=== PATIENT | male | born 2005 | race Caucasian/White ===

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

== ENCOUNTER 2024-05-30 23:00 | Emergency (ER) | payer OTHER, SELFPAY ==
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
--- OUTSIDE RECORDS SUMMARY | 2024-05-30 23:02 | XMS_ITS | Encounter Summary ---
Author Organization [facility] Address [facility] [place] [address] Care Team Providers Care Computer Video Game Designer Name Role Phone None, Provider Primary Care Provider Desireea ble Encounter Details Date Type Department Care Team (Late st Contact Info) Description 07/13/2018 Abstract SFL CONVERSION [address] [place] [address] , Generic Conversion, Social History Tobacco Use Types Packs/Day Years Used Date Smoking Tobacco: Never Assessed Sex and Gender Information Value Date Recorded Sex Assigned at Male 03/15/2024 7:45 PM DIABETES CLINICAL MANAGER Legal Sex Male 5:49 PM DIABETES CLINICAL MANAGER Gender Identity Not on file Sexual Orientation Not on file documented as of this encounter Plan of Treatment Not on file documented as of this encounter Visit Diagnoses Not on filedocumented in this encounter Care Teams Computer Video Game Designer Relationship Specialty Start Date End Date None, Provider, PCP - General UNKNOWN PHYSICIAN SPECIALTY 04/24/22 documented as of this encounter
--- OUTSIDE RECORDS SUMMARY | 2024-05-30 23:02 | XMS_ITS | Clinical Summary ---
Author Organization [facility] Address Replaced by [facility] [place] [address] Care Team Providers Care Nurse Orthopedic Name Role Phone None, Provider MD Primary Care Provider Unavaila ble Allergies Active Allergy Reactions Criticality Noted Date Comments Bee Venom Unknown 03/15/2024 Medications No known medications Encounters Date Type Department Care Team Description 03/15/2024 7:38 PM X RAY SERVICE TECHNICIAN - 03/15/2024 9:08 PM X RAY SERVICE TECHNICIAN Emergency [facility] [address] [place] [address] [place] [address] Clarence Dominguez MD Rectal Problem Discharge Disposition: Home or Self Care (Routine Discharge) 03/15/2024 Travel from Last 3 Months Social History Tobacco Use Types Packs/Day Years Used Date Smoking Tobacco: Never Smokeless Tobacco: Never Tobacco Cessation:Counseling Given: Not Answered Alcohol Use Standard Drinks/Week Comments Never 0 (1 standard drink = 0.6 oz pur e alcohol) Sex and Gender Information Value Date Recorded Sex Assigned at Male 03/15/2024 7:45 PM X RAY SERVICE TECHNICIAN Legal Sex Male 5:49 PM X RAY SERVICE TECHNICIAN Gender Identity Not on file Sexual Orientation Not on file Last Filed Vital Signs Vital Sign Reading Time Taken Comments Blood Pressure 109/59 03/15/2024 9:00 PM X RAY SERVICE TECHNICIAN Pulse 70 03/15/2024 7:39 PM X RAY SERVICE TECHNICIAN Temperature 36.3 C (97.4 F) 03/15/2024 7:39 PM X RAY SERVICE TECHNICIAN Respiratory Rate 18 03/15/2024 7:39 PM X RAY SERVICE TECHNICIAN Oxygen Saturation 100% 03/15/2024 9:00 PM X RAY SERVICE TECHNICIAN Inhaled Oxygen Concentration - - Weight 90.8 kg (200 lb 3.2 oz) 03/15/2024 7:39 P M X RAY SERVICE TECHNICIAN Height 177.8 cm (5' 10 ) 03/15/2024 7:39 PM X RAY SERVICE TECHNICIAN Body Mass Index 28.73 03/15/2024 7:39 PM X RAY SERVICE TECHNICIAN Plan of Treatment Health Maintenance Due Date Last Done Comments Annual Physical 10/08/2007 Meningococcal B Vaccine (1 o f 2 - Standard) 2020 Hepatitis C 2022 COVID-19 Vaccine (1 - 2023-2 5 season) 2023 Hepatitis B Vaccines (1 of 3 - 19+ 3-dose series) 10/08/2023 DTaP, Tdap and Td Vaccines ( 2 - Td or Tdap) 10/06/2026 10/06/2016 Meningococcal Vaccine Aged Out 10/06/2016 No navdeep ana paula eligible based on patient's age to complete this topic HPV Vaccines Completed 04/27/2017, 10/06/2016 Pneumococcal Vaccine: Pediatrics (0 to 5 Years) and At-Risk Patients (6 to 49 Years) Aged Out No longer eligible b ased on patient's age to complete this topic RSV Immunizations Under 20 Months Aged Out No longer eligible b ased on patient's age to complete this topic Procedures Procedure Name Priority Date/Time Associated Diagnosis Comments CT ABD+PEL W CON STAT 03/15/2024 8:29 PM X RAY SERVICE TECHNICIAN COMPREHENSIVE METABOLIC PANEL STAT 03/15/2024 8:14 PM X RAY SERVICE TECHNICIAN PARTIAL THROMBOPLASTIN TIME,PTT STAT 03/15/2024 8:14 PM X RAY SERVICE TECHNICIAN PROTHROMBIN TIME, VENOUS STAT 03/15/2024 8:14 PM X RAY SERVICE TECHNICIAN CBC W/DIFF AUTOMATED STAT 03/15/2024 8:14 PM X RAY SERVICE TECHNICIAN from Last 3 Months Results * CT ABD+PEL W CON (03/15/2024 8:29 PM X RAY SERVICE TECHNICIAN) Anatomical Region Laterality Modality Abdomen Computed Tomogra phy 03/15/2024 8:36 PM X RAY SERVICE TECHNICIAN Impressions 03/15/2024 8:43 PM X RAY SERVICE TECHNICIAN Impression: No acute abnormalities identified within the abdomen or pelvis. Ordered By: CLARENCE DOMINGUEZ Interpreted By: Jarrod Lopez MD, 03/15/2024 8:36 PM Narrative 03/15/2024 8:43 PM X RAY SERVICE TECHNICIAN [address] [place] [address] Examination: CT abdomen and pelvis with IV contrast. Clinical Information: ABDOMINAL PAIN FOR A FEW DAYS PATIENT STATES THAT HE NOTICED THE BLOOD IN HIS STOOL THIS AFTERNOON. Comparison:No comparison. Technique: IV contrast: 89 mL Isovue 370. Oral contrast: None. Technical comments: Standard technique. Dose reduction: This CT exam was performed using one or more of the following dose reduction techniques: Automated exposure control, adjustment of the mA and/or kV according to patient size, and/or use of iterative reconstruction technique. Findings: LOWER CHEST Heart is normal in size. Lung bases are clear. No pleural or pericardial effusions. UPPER ABDOMEN Liver and bile ducts: No focal liver lesion. Portal veins are patent. No biliary dilatation. Gallbladder: No gallbladder wall thickening or pericholecystic fluid. Pancreas: Unremarkable. Spleen: Normal. RETROPERITONEUM Adrenals: Normal. Kidneys: Enhance symmetrically with no solid mass or hydronephrosis. Lymph nodes: No lymphadenopathy in the abdomen or pelvis. BOWEL AND PERITONEUM Bowel: No acute bowel obstruction or inflammatory process. No CT findings of GI bleed within the limitations of a nondedicated exam. Free air or fluid: None. VASCULATURE The abdominal aorta is normal in caliber. PELVIS No abnormality. BONES/SOFT TISSUES No significant lesion. Procedure Note Jarrod Lopez MD - 03/15/[address] [place] [address] Examination: CT abdomen and pelvis with IV contrast. Clinical Information: ABDOMINAL PAIN FOR A FEW DAYS PATIENT STATES THATHE NOTICED THE BLOOD IN HIS STOOL THIS AFTERNOON. Comparison:No comparison. Technique: IV contrast: 89 mL Isovue 370. Oral contrast: None. Technical comments: Standard technique. Dose reduction: This CT exam was performed using one or more of thefollowing dose reduction techniques: Automated exposure control,adjustment of the mA and/or kV according to patient size, and/or use ofiterative reconstruction technique. Findings: LOWER CHEST Heart is normal in size. Lung bases are clear. No pleural or pericardialeffusions. UPPER ABDOMEN Liver and bile ducts: No focal liver lesion. Portal veins are patent. Nobiliary dilatation. Gallbladder: No gallbladder wall thickening or pericholecystic fluid. Pancreas: Unremarkable. Spleen: Normal. RETROPERITONEUM Adrenals: Normal. Kidneys: Enhance symmetrically with no solid mass or hydronephrosis. Lymph nodes: No lymphadenopathy in the abdomen or pelvis. BOWEL AND PERITONEUM Bowel: No acute bowel obstruction or inflammatory process. No CT findingsof GI bleed within the limitations of a nondedicated exam. Free air or fluid: None. VASCULATURE The abdominal aorta is normal in caliber. PELVIS No abnormality. BONES/SOFT TISSUES No significant lesion. Impression: No acute abnormalities identified within the abdomen or pelvis. Ordered By: CLARENCE DOMINGUEZ Interpreted By: Jarrod Lopez MD, 03/15/2024 8:36 PM Clarence Dominguez MD CT Final Res ult * PARTIAL THROMBOPLASTIN TIME,PTT (03/15/2024 8:14 PM X RAY SERVICE TECHNICIAN) PTT 35.0 25.1 - 36.5 SEC 03/15/2024 8:32 PM X RAY SERVICE TECHNICIAN [facility] 03/15/2024 8:14 PM X RAY SERVICE TECHNICIAN Clarence Dominguez MD LABORATORY Final Res ult [facility] [address] [place] [address], * (ABNORMAL) PROTIME/INR, VENOUS (03/15/2024 8:14 PM X RAY SERVICE TECHNICIAN) PROTIME 12.7(H) 9.4 - 12.5 SEC 03/15/2024 8:32 PM X RAY SERVICE TECHNICIAN [facility] INR 1.1(H) 0.8 - 1.0 03/15/2024 8:32 PM X RAY SERVICE TECHNICIAN [facility] 03/15/2024 8:14 PM X RAY SERVICE TECHNICIAN us Clarence Dominguez MD LABORATORY Final Res ult [facility] [address] [place] [address], * (ABNORMAL) COMPREHENSIVE METABOLIC PANEL (03/15/2024 8:14 PM X RAY SERVICE TECHNICIAN) SODIUM S/P/B 142 136 - 145 MMOL/L 03/15/2024 8:[address] [facility] POTASSIUM S/P/B 4.4 3.5 - 5.1 MMOL/L 03/15/2024 8:[address] [facility] CHLORIDE S/P/B 104 98 - 107 MMOL/L 03/15/2024 8:[address] [facility] CO2 28.9 21.0 - 32.0 MMOL/L 03/15/2024 8:[address] [facility] GLUCOSE 88 70 - 99 MG/DL 03/15/2024 8:[address] [facility] Comment: FASTING GLUCOSE 100 TO 125 MG/DL IS CONSISTENT WITH IMPAIRED FASTING GLUCOSE. FASTING GLUCOSE >125 MG/DL IS CONSISTENT WITH DIABETES. RANDOM GLUCOSE >200 MG/DL WITH HYPERGLYCEMIC SYMPTOMS IS CONSISTENT WITH DIABETES. PER ADA GUIDELINES BUN 9 6 - 24 MG/DL 03/15/2024 8:[address] [facility] CREATININE S/P/B 0.89 0.70 - 1.30 MG/DL 03/15/2024 8:[address] [facility] CALCIUM S/P/B 9.1 8.4 - 10.5 MG/DL 03/15/2024 8:[address] [facility] BILIRUBIN TOTAL S/P/B 0.4 0.2 - 1.0 MG/DL 03/15/2024 8:[address] [facility] Comment: THIS ASSAY IS NOT RECOMMENDED FOR PATIENTS UNDERGOING TREATMENT WITH ELTROMBOPAG DUE TO THE POTENTIAL FOR FALSELY ELEVATED RESULTS. ALKALINE PHOSPHATASE S/P/B 82 45 - 115 U/L 03/15/2024 8:[address] [facility] AST 13(L) 15 - 37 U/L 03/15/2024 8:36 PM X RAY SERVICE TECHNICIAN [facility] ALT 25 16 - 63 U/L 03/15/2024 8:[address] [facility] TOTAL PROTEIN S/P/B 7.4 6.4 - 8.2 G/DL 03/15/2024 8:[address] [facility] ALBUMIN S/P/B 4.1 3.4 - 5.0 G/DL 03/15/2024 8:[address] [facility] ANION GAP 9.1 5.0 - 15.0 MMOL/L 03/15/2024 8:[address] [facility] OSMOLALITY (CALC) 292 MOSM/KG 025 8:[address] [facility] Comment:REFERENCE RANGE NOT ESTABLISHED GFR ESTIMATE >90 >89 ML/MIN/1. 73 M2 03/15/2024 8:[address] [facility] GFR NOTES GFR REFERENCE S: 03/15/2024 8:[address] [facility] Comment: THE ESTIMATED GFR IS CALCULATED USING THE 2020 CKD-EPI EQUATION. THE FOLLOWING CATEGORIES FOR GRADING RENAL FUNCTION ARE RECOMMENDED BY THE INTERNATIONAL SOCIETY OF NEPHROLOGY (KDIGO 2012 CLINICAL PRACTICE GUIDELINE). G1,NORMAL OR HIGH: >89 ml/min/1.73 m2 G2,MILDLY DECREASED: 60-89 ml/min/1.73 m2 G3A,MILDLY TO MODERATELY DECREASED: 45-59 ml/min/1.73 m2 G3B,MODERATELY TO SEVERELY DECREASED: 30-44 ml/min/1.73 m2 G4,SEVERELY DECREASED: 15-29 ml/min/1.73 m2 G5,KIDNEY FAILURE: <15 ml/min/1.73 m2 03/15/2024 8:14 PM X RAY SERVICE TECHNICIAN us Clarence Dominguez MD LABORATORY Final Res ult [facility] [address] [place] [address], * (ABNORMAL) CBC W/DIFF AUTOMATED (03/15/2024 8:14 PM X RAY SERVICE TECHNICIAN) [facility] WBC 10.15 4.00 - 10.80 x10'3/uL 03/15/2024 8:[address] [facility] RBC 6.63(H) 4.50 - 6.10 x10'6/uL 03/15/2024 8:[address] [facility] HGB 12.5(L) 13.0 - 18.0 G/DL 03/15/2024 8:[address] [facility] HCT 40.3 37.0 - 52.0 % 03/15/2024 8:[address] [facility] MCV 60.8(L) 78.0 - 100.0 FL 03/15/2024 8:[address] [facility] MCH 18.9(L) 27.0 - 31.0 PG 03/15/2024 8:[address] [facility] MCHC 31.0(L) 33.0 - 36.0 G/DL 03/15/2024 8:[address] [facility] RDW 16.7(H) 11.5 - 14.5 % 03/15/2024 8:[address] [facility] PLT 425(H) 150 - 350 x10'3/uL 03/15/2024 8:[address] [facility] MPV 9.0 7.4 - 10.4 FL 03/15/2024 8:[address] [facility] CBC COMMENT NORMAL REFERENCE RANGE NOT ESTABLISHED FOR THE PROPORTIONAL LEUKOCYTE DIFFERENTIAL. 03/15/2024 8:[address] [facility] NEUTROPHILS % 58.7 % 03/15/2024 8:[address] [facility] LYMPHOCYTES % 28.7 % 03/15/2024 8:[address] [facility] MONOCYTES % 9.8 % 03/15/2024 8:[address] [facility] EOSINOPHILS % 1.1 % 03/15/2024 8:[address] [facility] BASOPHILS % 0.7 % 03/15/2024 8:[address] [facility] IMMATURE GRANS % 1.0 % 03/15/19 8:37 PM X RAY SERVICE TECHNICIAN [facility] NRBC % 0.0 % 03/15/2024 8:37 PM X RAY SERVICE TECHNICIAN [facility] ABS. NEUTROPHILS 5.97 1.60 - 8.30 x10'3/uL 03/15/2024 8:37 PM X RAY SERVICE TECHNICIAN [facility] ABS. LYMPHOCYTES 2.91 0.80 - 4.70 x10'3/uL 03/15/2024 8:37 PM X RAY SERVICE TECHNICIAN [facility] ABS. MONOCYTES 0.99 0.00 - 1.50 x10'3/uL 03/15/2024 8:37 PM X RAY SERVICE TECHNICIAN [facility] ABS. EOSINOPHILS 0.11 0.00 - 0.40 x10'3/uL 03/15/2024 8:37 PM X RAY SERVICE TECHNICIAN [facility] ABS. BASOPHILS 0.07 0.00 - 0.20 x10'3/uL 03/15/2024 8:37 PM X RAY SERVICE TECHNICIAN [facility] ABS. IMMATURE GRANULOCYTES 0.10(H) 0.00 - 0.03 x10'3/uL 03/15/2024 8:37 PM X RAY SERVICE TECHNICIAN [facility] ABS. NUCLEATED RBC'S 0.00 0.00 - 0.01 x10'3/uL 03/15/2024 8:37 PM X RAY SERVICE TECHNICIAN [facility] PLT MORPH. NORMAL 03/15/2024 8:37 PM X RAY SERVICE TECHNICIAN [facility] RBC MORPHOLOGY 1+ 03/15/2024 8:37 PM X RAY SERVICE TECHNICIAN [facility] Comment: HYPOCHROMASIA 1+ MICROCYTES 03/15/2024 8:14 PM X RAY SERVICE TECHNICIAN us Clarence Dominguez MD LABORATORY Final Res ult [facility] [address] [place] [address], from Last 3 Months Insurance [employer] Care Teams Nurse Orthopedic Relationship Specialty Start Date End Date None, Provider, PCP - General UNKNOWN PHYSICIAN SPECIALTY 04/24/22
[2024-05-30 23:03] VITALS: BP 127/71; PULSE 85; RESP 18; TEMP 36.2; O2SAT 100
--- OUTSIDE RECORDS SUMMARY | 2024-05-30 23:23 | XMS_ITS | Encounter Summary ---
Author Organization [facility] Address formerly [facility] [place] [address] Care Team Providers Care Business Account Manager Name Role Phone None, Provider Primary Care Provider Desireea ble Encounter Details Date Type Department Care Team (Late st Contact Info) Description 07/13/2018 Abstract SFL CONVERSION [address] [place] [address] , Generic Conversion, Social History Tobacco Use Types Packs/Day Years Used Date Smoking Tobacco: Never Assessed Sex and Gender Information Value Date Recorded Sex Assigned at Male 03/15/2024 7:45 PM GAUGE AND WEIGH MACHINE ADJUSTER Legal Sex Male 5:49 PM GAUGE AND WEIGH MACHINE ADJUSTER Gender Identity Not on file Sexual Orientation Not on file documented as of this encounter Plan of Treatment Not on file documented as of this encounter Visit Diagnoses Not on filedocumented in this encounter Care Teams Business Account Manager Relationship Specialty Start Date End Date None, Provider, PCP - General UNKNOWN PHYSICIAN SPECIALTY 04/24/22 documented as of this encounter
--- OUTSIDE RECORDS SUMMARY | 2024-05-30 23:23 | XMS_ITS | Clinical Summary ---
Author Organization [facility] Address [facility] [place] [address] Care Team Providers Care Die Try Out Worker Stamping Name Role Phone None, Provider MD Primary Care Provider Unavaila ble Allergies Active Allergy Reactions Criticality Noted Date Comments Bee Venom Unknown 03/15/2024 Medications No known medications Encounters Date Type Department Care Team Description 03/15/2024 7:38 PM CUSHION COVER INSPECTOR - 03/15/2024 9:08 PM CUSHION COVER INSPECTOR Emergency [facility] [address] [place] [address] [place] [address] Clarence Dominguez MD Rectal Problem Discharge Disposition: [...] Sex Assigned at Male 03/15/2024 7:45 PM CUSHION COVER INSPECTOR Legal Sex Male 5:49 PM CUSHION COVER INSPECTOR Gender Identity Not on file Sexual Orientation Not on file Last Filed Vital Signs Vital Sign Reading Time Taken Comments Blood Pressure 109/59 03/15/2024 9:00 PM CUSHION COVER INSPECTOR Pulse 70 03/15/2024 7:39 PM CUSHION COVER INSPECTOR Temperature 36.3 C (97.4 F) 03/15/2024 7:39 PM CUSHION COVER INSPECTOR Respiratory Rate 18 03/15/2024 7:39 PM CUSHION COVER INSPECTOR Oxygen Saturation 100% 03/15/2024 9:00 PM CUSHION COVER INSPECTOR Inhaled Oxygen Concentration - - Weight 90.8 kg (200 lb 3.2 oz) 03/15/2024 7:39 P M CUSHION COVER INSPECTOR Height 177.8 cm (5' 10 ) 03/15/2024 7:39 PM CUSHION COVER INSPECTOR Body Mass Index 28.73 03/15/2024 7:39 PM CUSHION COVER INSPECTOR Plan of Treatment Health Maintenance Due Date [...] ABD+PEL W CON STAT 03/15/2024 8:29 PM CUSHION COVER INSPECTOR COMPREHENSIVE METABOLIC PANEL STAT 03/15/2024 8:14 PM CUSHION COVER INSPECTOR PARTIAL THROMBOPLASTIN TIME,PTT STAT 03/15/2024 8:14 PM CUSHION COVER INSPECTOR PROTHROMBIN TIME, VENOUS STAT 03/15/2024 8:14 PM CUSHION COVER INSPECTOR CBC W/DIFF AUTOMATED STAT 03/15/2024 8:14 PM CUSHION COVER INSPECTOR from Last 3 Months Results * CT ABD+PEL W CON (03/15/2024 8:29 PM CUSHION COVER INSPECTOR) Anatomical Region Laterality Modality Abdomen Computed Tomogra phy 03/15/2024 8:36 PM CUSHION COVER INSPECTOR Impressions 03/15/2024 8:43 PM CUSHION COVER INSPECTOR Impression: No acute abnormalities identified within the abdomen or pelvis. Ordered By: CLARENCE DOMINGUEZ Interpreted By: Jarrod Lopez MD, 03/15/2024 8:36 PM Narrative 03/15/2024 8:43 PM CUSHION COVER INSPECTOR [address] [place] [address] Examination: CT abdomen and pelvis with IV [...] Procedure Note Jarrod Lopez MD - 03/15/[address] [place] [address] Examination: CT abdomen and pelvis with IV [...] * PARTIAL THROMBOPLASTIN TIME,PTT (03/15/2024 8:14 PM CUSHION COVER INSPECTOR) PTT 35.0 25.1 - 36.5 SEC 03/15/2024 8:32 PM CUSHION COVER INSPECTOR [facility] 03/15/2024 8:14 PM CUSHION COVER INSPECTOR Clarence Dominguez MD LABORATORY Final Res ult [facility] [address] [place] [address], * (ABNORMAL) PROTIME/INR, VENOUS (03/15/2024 8:14 PM CUSHION COVER INSPECTOR) PROTIME 12.7(H) 9.4 - 12.5 SEC 03/15/2024 8:32 PM CUSHION COVER INSPECTOR [facility] INR 1.1(H) 0.8 - 1.0 03/15/2024 8:32 PM CUSHION COVER INSPECTOR [facility] 03/15/2024 8:14 PM CUSHION COVER INSPECTOR us Clarence Dominguez MD LABORATORY Final Res ult [facility] [address] [place] [address], * (ABNORMAL) COMPREHENSIVE METABOLIC PANEL (03/15/2024 8:14 PM CUSHION COVER INSPECTOR) SODIUM S/P/B 142 136 - 145 MMOL/L 03/15/2024 8:36 PM [facility] POTASSIUM S/P/B 4.4 3.5 - 5.1 MMOL/L 03/15/2024 8:36 PM [facility] CHLORIDE S/P/B 104 98 - 107 MMOL/L 03/15/2024 8:36 PM [facility] CO2 28.9 21.0 - 32.0 MMOL/L 03/15/2024 8:36 PM [facility] GLUCOSE 88 70 - 99 MG/DL 03/15/2024 8:36 PM [facility] Comment: FASTING GLUCOSE 100 TO 125 MG/DL IS CONSISTENT WITH IMPAIRED FASTING GLUCOSE. FASTING GLUCOSE >125 MG/DL IS CONSISTENT WITH DIABETES. RANDOM GLUCOSE >200 MG/DL WITH HYPERGLYCEMIC SYMPTOMS IS CONSISTENT WITH DIABETES. PER ADA GUIDELINES BUN 9 6 - 24 MG/DL 03/15/2024 8:36 PM [facility] CREATININE S/P/B 0.89 0.70 - 1.30 MG/DL 03/15/2024 8:36 PM [facility] CALCIUM S/P/B 9.1 8.4 - 10.5 MG/DL 03/15/2024 8:36 PM [facility] BILIRUBIN TOTAL S/P/B 0.4 0.2 - 1.0 MG/DL 03/15/2024 8:36 PM [facility] Comment: THIS ASSAY IS NOT RECOMMENDED FOR PATIENTS UNDERGOING TREATMENT WITH ELTROMBOPAG DUE TO THE POTENTIAL FOR FALSELY ELEVATED RESULTS. ALKALINE PHOSPHATASE S/P/B 82 45 - 115 U/L 03/15/2024 8:36 PM [facility] AST 13(L) 15 - 37 U/L 03/15/2024 8:36 PM CUSHION COVER INSPECTOR [facility] ALT 25 16 - 63 U/L 03/15/2024 8:36 PM [facility] TOTAL PROTEIN S/P/B 7.4 6.4 - 8.2 G/DL 03/15/2024 8:36 PM [facility] ALBUMIN S/P/B 4.1 3.4 - 5.0 G/DL 03/15/2024 8:36 PM [facility] ANION GAP 9.1 5.0 - 15.0 MMOL/L 03/15/2024 8:36 PM [facility] OSMOLALITY (CALC) 292 MOSM/KG 025 8:36 PM [facility] Comment:REFERENCE RANGE NOT ESTABLISHED GFR ESTIMATE >90 >89 ML/MIN/1. 73 M2 03/15/2024 8:36 PM [facility] GFR NOTES GFR REFERENCE S: 03/15/2024 8:36 PM [facility] Comment: THE ESTIMATED GFR IS [...] FAILURE: <15 ml/min/1.73 m2 03/15/2024 8:14 PM CUSHION COVER INSPECTOR us Clarence Dominguez MD LABORATORY Final Res ult [facility] [address] [place] [address], * (ABNORMAL) CBC W/DIFF AUTOMATED (03/15/2024 8:14 PM CUSHION COVER INSPECTOR) [facility] WBC 10.15 4.00 - 10.80 x10'3/uL 03/15/2024 8:24 PM [facility] RBC 6.63(H) 4.50 - 6.10 x10'6/uL 03/15/2024 8:24 PM [facility] HGB 12.5(L) 13.0 - 18.0 G/DL 03/15/2024 8:24 PM [facility] HCT 40.3 37.0 - 52.0 % 03/15/2024 8:24 PM [facility] MCV 60.8(L) 78.0 - 100.0 FL 03/15/2024 8:24 PM [facility] MCH 18.9(L) 27.0 - 31.0 PG 03/15/2024 8:24 PM [facility] MCHC 31.0(L) 33.0 - 36.0 G/DL 03/15/2024 8:24 PM [facility] RDW 16.7(H) 11.5 - 14.5 % 03/15/2024 8:24 PM [facility] PLT 425(H) 150 - 350 x10'3/uL 03/15/2024 8:24 PM [facility] MPV 9.0 7.4 - 10.4 FL 03/15/2024 8:24 PM [facility] CBC COMMENT NORMAL REFERENCE RANGE NOT ESTABLISHED FOR THE PROPORTIONAL LEUKOCYTE DIFFERENTIAL. 03/15/2024 8:24 PM [facility] NEUTROPHILS % 58.7 % 03/15/2024 8:37 PM [facility] LYMPHOCYTES % 28.7 % 03/15/2024 8:37 PM [facility] MONOCYTES % 9.8 % 03/15/2024 8:37 PM [facility] EOSINOPHILS % 1.1 % 03/15/2024 8:37 PM [facility] BASOPHILS % 0.7 % 03/15/2024 8:37 PM [facility] IMMATURE GRANS % 1.0 % 03/15/19 8:37 PM CUSHION COVER INSPECTOR [facility] NRBC % 0.0 % 03/15/2024 8:37 PM CUSHION COVER INSPECTOR [facility] ABS. NEUTROPHILS 5.97 1.60 - 8.30 x10'3/uL 03/15/2024 8:37 PM CUSHION COVER INSPECTOR [facility] ABS. LYMPHOCYTES 2.91 0.80 - 4.70 x10'3/uL 03/15/2024 8:37 PM CUSHION COVER INSPECTOR [facility] ABS. MONOCYTES 0.99 0.00 - 1.50 x10'3/uL 03/15/2024 8:37 PM CUSHION COVER INSPECTOR [facility] ABS. EOSINOPHILS 0.11 0.00 - 0.40 x10'3/uL 03/15/2024 8:37 PM CUSHION COVER INSPECTOR [facility] ABS. BASOPHILS 0.07 0.00 - 0.20 x10'3/uL 03/15/2024 8:37 PM CUSHION COVER INSPECTOR [facility] ABS. IMMATURE GRANULOCYTES 0.10(H) 0.00 - 0.03 x10'3/uL 03/15/2024 8:37 PM CUSHION COVER INSPECTOR [facility] ABS. NUCLEATED RBC'S 0.00 0.00 - 0.01 x10'3/uL 03/15/2024 8:37 PM CUSHION COVER INSPECTOR [facility] PLT MORPH. NORMAL 03/15/2024 8:37 PM CUSHION COVER INSPECTOR [facility] RBC MORPHOLOGY 1+ 03/15/2024 8:37 PM CUSHION COVER INSPECTOR [facility] Comment: HYPOCHROMASIA 1+ MICROCYTES 03/15/2024 8:14 PM CUSHION COVER INSPECTOR us Clarence Dominguez MD LABORATORY Final Res ult [facility] [address] [place] [address], from Last 3 Months Insurance [employer] Care Teams Die Try Out Worker Stamping Relationship Specialty Start Date End Date None, Provider, PCP - General UNKNOWN PHYSICIAN SPECIALTY 04/24/22
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
[2024-05-31 00:09] VITALS: BP 105/65; PULSE 67; RESP 18; TEMP 36.6; O2SAT 99
== END 2024-05-31 00:09 | disposition home or self-care (01) ==
PROVIDERS: Emergency Provider Emergency Medicine; PCP Internal Medicine
DX: S93.491A Sprain of other ligament of right ankle, initial encounter (principal); S93.601A Unspecified sprain of right foot, initial encounter; W17.89XA Other fall from one level to another, initial encounter
CPT/HCPCS: 29515; 73610; 73630; 99283; L4350

== ENCOUNTER 2024-12-22 19:52 | Emergency (ER) | payer SELFPAY ==
[2024-12-22 19:53] VITALS: BP 140/72; PULSE 76; RESP 22; TEMP 36.5; O2SAT 100
--- NOTE | 2024-12-22 20:08 | ED_ITS ---
HPI - Male Genitourinary General Chief complaint: Urogenital-Male Stated complaint: testicle issue Time Seen by Provider: 12/22/24 19:55 Source: patient Mode of arrival: ambulatory History of Present Illness HPI Narrative: 19-year-old otherwise healthy here with the complaints of a mass on the left testicle noticed few hours ago. He denies any pain or fever or chills no trauma. Complaint: testicle swelling Onset (ago): hour(s) (1) Duration: constant Location: left testicle Related Data Home Medications ?Medication ?Instructions ?Recorded ?Confirmed ?Last Taken ?Type No Home Medications 05/20/21 12/22/24 U nknown History Allergies Allergy/AdvReac Type Severity Reaction Status Date / Time No Known Allergies Allergy Verified 12/22/24 19:55 Review of Systems Review of Systems: All systems reviewed & are unremarkable except as noted in HPI and below Constitutional: Constitutional: Reports no additional constitutional complaints Eyes: Eyes: Reports no additional eye complaints ENT: Reports system reviewed and no additional complaints, except as documented Cardiovascular: Cardiovascular: Reports no additional cardiovascular complaints Respiratory: Respiratory: Reports no additional respiratory complaints Gastrointestinal: Gastrointestinal: Reports no additional gastrointestinal complaints Genitourinary: Genitourinary: Reports as per HPI Musculoskeletal: Musculoskeletal: Reports no additional musculoskeletal complaints PMFSH Past Medical History Medical History No active medical problems Surgical History Surgical History No pertinent past surgical history Social History Social History Smoking status: Never smoker Exam Narrative: GENERAL: Well-appearing, well-nourished, and in no acute distress. HEAD: Normocephalic, atraumatic. EYES: PERRLA and EOMI. NECK: Supple. CHEST: Clear to auscultation. No respiratory distress. HEART: Regular rate and rhythm. No murmur heard. Normal peripheral pulses. ABDOMEN: Soft, nontender, nondistended, normal active bowel sounds. both the testicles are descended nontender, there is a small swelling on the epididymal area on the left , non tender Right is normal EXTREMITIES: Normal range of motion. No edema. SKIN: Warm, dry, no rash. NEURO: No focal deficits. Alert and oriented x3. PSYCH: Normal mood and affect. Course Course Emergency Course: informed him it appears to be like varicocele or epididymal cyst. Move the testis are soft and nontender advised him to come back in the morning to get an ultrasound. Vital Signs Vital signs: Vital Signs Temperature 36.5 C 12/22/24 19:53 Pulse Rate 76 12/22/24 19:53 Respiratory Rate 22 H 12/22/24 19:53 Blood Pressure 140/72 12/22/24 19:53 Pulse Oximetry 100 12/22/24 19:53 Oxygen Delivery Room Air 12/22/24 19:53 Temperature 36.5 C 12/22/24 19:53 Pulse Rate 76 12/22/24 19:53 Respiratory Rate 22 H 12/22/24 19:53 Blood Pressure 140/72 12/22/24 19:53 Pulse Oximetry 100 12/22/24 19:53 Oxygen Delivery Room Air 12/22/24 19:53 Discharge Plan Discharge Clinical Impression: Mass of left testis Patient Disposition: Home Condition: Stable Instructions: Testicle Pain (ED) Additional Instructions: please come in the morning for ultrasound Patient Language: Tajik Prescriptions: No Action No Home Medications Follow-up/Referrals: Steven Everett MD [Physician, Internal Medicine] Time of Disposition: 20:10
[2024-12-22 21:12] VITALS: BP 107/62; PULSE 62; RESP 16; TEMP 36.5; O2SAT 98
== END 2024-12-22 21:18 | disposition home or self-care (01) ==
PROVIDERS: Emergency Provider Family Medicine; Referring Provider Family Medicine
DX: N50.9 Disorder of male genital organs, unspecified (principal)
CPT/HCPCS: 99281

== ENCOUNTER 2024-12-23 07:03 | Emergency (ER) | payer SELFPAY ==
--- NOTE | ~2024-12-23 | US_ITS ---
EXAMINATION: US scrotum doppler, 12/23/2024 7:12 QUALITY DIRECTOR HISTORY: left testicular mass Comparison: None Technique: Kinney-scale and color Doppler images were obtained of the testes with spectral analysis to document arterial and venous flow. Findings: Right Testicle:Right testicle 3.7 x 2.6 x 2.1 cm, normal parenchyma, normal flow. Right Epidiymis:Unremarkable. Normal flow. Left Testicle: Left testicle 3.6 x 2.2 x 2.1 cm normal parenchyma, normal flow. Left Epidiymis: Unremarkable. Normal flow. Hydrocele: None . Varicocele: Small left varicocele. Scrotum: Unremarkable. No skin thickening. Impression: Small left varicocele Reviewed, dictated and finalized at location P. ITY DIRECTOR Impression: Small left varicocele
[2024-12-23 07:03] VITALS: BP 120/66; PULSE 81; RESP 16; TEMP 36.4; O2SAT 99
--- NOTE | 2024-12-23 07:08 | ED_ITS ---
HPI - Male Genitourinary General Chief complaint: Urogenital-Male <Juan David Kirby MD - Last Filed: 12/23/24 07:15> Stated complaint: Testicle Swelling <Juan David Kirby MD - Last Filed: 12/23/24 07:15> Time Seen by Provider: 12/23/24 07:08 <Juan David Kirby MD - Last Filed: 12/23/24 07:15> Source: patient <Juan David Kirby MD - Last Filed: 12/23/24 07:15> Mode of arrival: ambulatory <Juan David Kirby MD - Last Filed: 12/23/24 07:15> History of Present Illness HPI Narrative: Here for testicular ultrasound , was seen last night for left testicular mass. no new complaints. <Juan David Kirby MD - Last Filed: 12/23/24 07:15> MD Complaint: testicle swelling <Juan David Kirby MD - Last Filed: 12/23/24 07:15> Onset (ago): day(s) (1) <Juan David Kirby MD - Last Filed: 12/23/24 07:15> Relieving factors: none <Juan David Kirby MD - Last Filed: 12/23/24 07:15> Exacerbating factors: none <Juan David Kirby MD - Last Filed: 12/23/24 07:15> Associated symptoms: Reports denies other symptoms <Juan David Kirby MD - Last Filed: 12/23/24 07:15> Related Data Home medications: Home Medications ?Medication ?Instructions ?Recorded ?Confirmed ?Last Taken ?Type No Home Medications 05/20/21 12/22/24 U nknown History <Juan David Kirby MD - Last Filed: 12/23/24 07:15> Allergies/Adverse reactions: Allergies Allergy/AdvReac Type Severity Reaction Status Date / Time No Known Allergies Allergy Verified 12/23/24 07:07 <Juan David Kirby MD - Last Filed: 12/23/24 07:15> Review of Systems Review of Systems: No new complaints <Yazan Middleton MD - Last Filed: 12/23/24 09:21> All systems reviewed & are unremarkable except as noted in HPI and below <Juan David Kirby MD - Last Filed: 12/23/24 07:15> Constitutional: Constitutional: Reports no additional constitutional complaints <Juan David Kirby MD - Last Filed: 12/23/24 07:15> Eyes: Eyes: Reports no additional eye complaints <Juan David Kirby MD - Last Filed: 12/23/24 07:15> ENT: Reports system reviewed and no additional complaints, except as do cumented <Juan David Kirby MD - Last Filed: 12/23/24 07:15> Cardiovascular: Cardiovascular: Reports no additional cardiovascular complaints <Juan David Kirby MD - Last Filed: 12/23/24 07:15> Respiratory: Respiratory: Reports no additional respiratory complaints <Juan David Kirby MD - Last Filed: 12/23/24 07:15> Gastrointestinal: Gastrointestinal: Reports no additional gastrointestinal complaints <Juan David Kirby MD - Last Filed: 12/23/24 07:15> Genitourinary: Genitourinary: Reports as per HPI <Juan David Kirby MD - Last Filed: 12/23/24 07:15> Musculoskeletal: Musculoskeletal: Reports no additional musculoskeletal complaints <Juan David Kirby MD - Last Filed: 12/23/24 07:15> PMFSH Past Medical History Medical History: Medical History No active medical problems <Juan David Kirby MD - Last Filed: 12/23/24 07:15> Surgical History Surgical History: Surgical History No pertinent past surgical history <Juan David Kirby MD - Last Filed: 12/23/24 07:15> Social History Social History: Social History Smoking status: Never smoker <Juan David Kirby MD - Last Filed: 12/23/24 07:15> Exam Narrative: GENERAL: Well-appearing, well-nourished, and in no acute distress. HEAD: Normocephalic, atraumatic. EYES: PERRLA and EOMI. ENT: Nares clear, no rhinorrhea or epistaxis. Mucous membranes moist. NECK: Supple. CHEST: Clear to auscultation. No respiratory distress. HEART: Regular rate and rhythm. No murmur heard. Normal peripheral pulses. ABDOMEN: Soft, nontender, nondistended, normal active bowel sounds. .A small swelling on the left testicle EXTREMITIES: Normal range of motion. No edema. SKIN: Warm, dry, no rash. NEURO: No focal deficits. Alert and oriented x3. PSYCH: Normal mood and affect. <Juan David Kirby MD - Last Filed: 12/23/24 07:15> Course Vital Signs Vital signs: Vital Signs Temperature 36.4 C 12/23/24 07:03 Pulse Rate 81 12/23/24 07:03 Respiratory Rate 16 12/23/24 07:03 Blood Pressure 120/66 12/23/24 07:03 Pulse Oximetry 99 12/23/24 07:03 Oxygen Delivery Room Air 12/23/24 07:03 Temperature 36.4 C 12/23/24 07:03 Pulse Rate 81 12/23/24 07:03 Respiratory Rate 16 12/23/24 07:03 Blood Pressure 120/66 12/23/24 07:03 Pulse Oximetry 99 12/23/24 07:03 Oxygen Delivery Room Air 12/23/24 07:03 <Juan David Kirby MD - Last Filed: 12/23/24 07:15> Vital Signs Temperature 36.4 C 12/23/24 07:03 Pulse Rate 81 12/23/24 07:03 Respiratory Rate 16 12/23/24 07:03 Blood Pressure 120/66 12/23/24 07:03 Pulse Oximetry 99 12/23/24 07:03 Oxygen Delivery Room Air 12/23/24 07:03 Temperature 36.4 C 12/23/24 07:03 Pulse Rate 81 12/23/24 07:03 Respiratory Rate 16 12/23/24 07:03 Blood Pressure 120/66 12/23/24 07:03 Pulse Oximetry 99 12/23/24 07:03 Oxygen Delivery Room Air 12/23/24 07:03 <Yazan Middleton MD - Last Filed: 12/23/24 09:21> MDM - Male Genitourinary MDM Narrative Medical decision making narrative: 7:40 a.m. I received report from Dr. Casas regarding This 19-year-old male who was seen last night, had a workup for it stick killer discomfort, was noted to have a any lump or mass on his left testicle, and had an epidural workup, and was requested to return this morning for an ultrasound. He has no new complaints, ultrasound is pending, 8:25 a.m. ultrasound shows a left small varicocoele, otherwise unremarkable. I discussed the results with the patient, recommended Tylenol 650 Q 6 as needed for discomfort and or ibuprofen 600 mg q.6 as needed Will refer him to urology for follow up. <Yazan Middleton MD - Last Filed: 12/23/24 09:21> Discharge Plan Discharge Clinical Impression: Left varicocele <Juan David Kirby MD - Last Filed: 12/23/24 07:15> Patient Disposition: Home <Juan David Kirby MD - Last Filed: 12/23/24 07:15> Condition: Stable <Juan David Kirby MD - Last Filed: 12/23/24 07:15> Instructions: Antibiotic Form, Varicocele (ED) <Juan David Kirby MD - Last Filed: 12/23/24 07:15> Additional Instructions: Your workup has been negative for urinary tract infection, urethritis, epididymitis, or testicular torsion but does show a small varicocele which is a enlarged portion of vein. This is typically not harmful although it can be uncomfortable. Wear supportive brief Tylenol 650 mg every 6 hours as needed for discomfort and or ibuprofen 600 mg every 6 hours as needed Follow-up with Dr. Laboy, urologist in 1-2 weeks <Juan David Kirby MD - Last Filed: 12/23/24 07:15> Patient Language: Sudanese <Juan David Kirby MD - Last Filed: 12/23/24 07:15> Prescriptions: No Action No Home Medications <Juan David Kirby MD - Last Filed: 12/23/24 07:15> Follow-up/Referrals: Yazan Whitten MD [Physician, Urology] Referral Note: Follow up for Left varicocele 1-2 weeks. Steven Everett MD [Physician, Internal Medicine] <Juan David Kirby MD - Last Filed: 12/23/24 07:15>
[2024-12-23 08:43] VITALS: BP 118/72; PULSE 75; RESP 16; TEMP 36.4; O2SAT 99
== END 2024-12-23 08:43 | disposition home or self-care (01) ==
PROVIDERS: Emergency Provider Family Medicine; Referring Provider Family Medicine
DX: I86.1 Scrotal varices (principal)
CPT/HCPCS: 76870; 93976; 99284